=== PATIENT | female | born 1940 | race Caucasian/White ===

== ENCOUNTER 2016-11-28 11:10 | Emergency (ER) | payer MEDICARE ==
--- NOTE | 2016-11-28 12:03 | RAD ---
RIGHT HAND: Three views obtained. HISTORY: Laceration to hand 1 week ago. Cellulitis. Swelling and redness. FINDINGS: There are degenerative changes seen at the first carpometacarpal joint. There are cystic changes se en in the carpals which appear chronic. Prominent degenerative changes are seen in the PIP and DIP joints of the second and third digits. C ystic changes are noted at the distal aspects of the middle phalanx of the third finger which appear benign. There is swelling of the PIP joints of the second and third digits which is probably chron ic. There is an extraarticular calcification near the PIP joints of the third finger which could represe nt old avulsion fracture. This does not appear acute. There is mild subluxation of this PIP joint. No destructive process or other evidence of osteomyelitis identified. IMPRESSION: There are degenerative changes seen involving the right hand as described above. No evidence of ost eomyelitis identified. POS: [facility]
[2016-11-28] MEDS ORDERED: Doxycycline 100 MG CAP ONE (12:09)
--- NOTE | 2016-11-28 12:20 | ERRECORD ---
[facility] EMERGENCY RECORD HPI CELLULITIS (11:41 JLOY) CHIEF COMPLAINT: Patient presents for evaluation of erythema, Patient presents for evaluation of swelling, Patient presents for evaluation of Pt hit right hand on a door 1 week ago with laceration. Was healing well but then became red and swollen. Started on clindamycin 2 days ago for cellulitis and the urgent care doc naya a line around the erythema. The erythema has progressed slightly past the line and the sweling has increased slightly but some of the erythema has lightened in color. No fever, chills, N/V. Minimal pain, mostly itches. HISTORIAN: History provided by patient. MECHANISM: Possible mechanism laceration. LOCATION: Symptoms are localized, most severe in the hand. TIME COURSE: Gradual onset of symptoms, Symptoms are worsening, are constant. ASSOCIATED WITH: No associated drainage, No associated fever, No associated nausea, No associated proximal streaking. COMPLICATING FACTORS: No complicating factors. EXACERBATED BY: Patient's condition exacerbated by nothing. RELIEVED BY: Patient's condition relieved by nothing. ROS (11:44 JLOY) CONSTITUTIONAL: Historian denies chills, denies fever. GI: Historian denies nausea, denies vomiting. SKIN: Historian reports cellulitis, reports pruritis. NEUROLOGIC: Historian denies paralysis, denies paresthesias, denies sensory changes. PAST MEDICAL HISTORY MEDICAL HISTORY: Flu vaccine up to date, Tetanus immunization up to date, Pneumococcal vaccine up to date, Past medical history includes cardiac history, myocardial infarction, STATES HAD "NO DAMAGE" AND NO BLOCKAGE BUT HAD A CLOT THAT CAUSED [place] IN 2009, Notes: CATARACT, Past medical history includes gastrointestinal disease, irritable bowel syndrome, Past medical history, Past medical history includes cardiac history, myocardial infarction, history of diabetes, Type II, history of hypertension. (11:30 MCBE) FEMALE SURGICAL HISTORY: CARDIAC CATH IN 2010, Surgical history of appendectomy, Surgical history of hysterectomy. (11:30 MCBE) SOCIAL HISTORY: Patient denies alcohol use, Patient denies drug use, Patient has no smoking history. (11:30 MCBE) NOTES: Nursing records reviewed, Agree with nursing records. (11:46 JLOY) KNOWN ALLERGIES penicillin G sodium CURRENT MEDICATIONS (11:26 MCBE) &a-1R&a+25V*p+0X*[id number]*c202B*c15G*c2P*p-0X&a-25V&a+1R Name: Machelle Payton : 1940 F76 MedRec: [id number] AcctNum: [id number] Prepared: Anthony Nov 28, 2016 12:23 by Interface Page 1 of 3 pMD [facility] EMERGENCY RECORD diltiazem HCl: CAPSULE, EXT RELEASE 24 HR : Strength - 120 mg : ORAL Patient Dose: 1 tab(s) Oral once a day (in the morning). lisinopril: TABLET : Strength - 5 mg : ORAL Patient Dose: 1/2 tab(s) Oral once a day (in the morning). metFORMIN: TABLET, EXTENDED RELEASE 24 HR : Strength - 500 mg : ORAL Patient Dose: tab(s) Oral 2 times a day.1 EACH AM ---1/2 TAB EACH PM. estradiol: TABLET : Strength - 2 mg : ORAL Patient Dose: 1/2 tab(s) Oral once a day (in the morning). pravastatin: TABLET : Strength - 40 mg : ORAL Patient Dose: 1 tab(s) Oral once a day (in the evening). Flonase: SPRAY, SUSPENSION : Strength - 50 mcg : NASAL Patient Dose: spray(s) Nares Both every other day. nitroglycerin: TABLET, SUBLINGUAL : Strength - 0.4 mg : SUBLINGUAL Patient Dose: 1 tab(s) Sublingual As Needed. aspirin: TABLET : Strength - 81 mg : ORAL Patient Dose: 1 tab(s) Oral every other day. Xalatan: DROPS : Strength - 0.005 % : OPHTHALMIC Patient Dose: 1 gtt Eyes Both once a day (at bedtime). Combigan: DROPS : Strength - 0.2 %-0.5 % : OPHTHALMIC Patient Dose: 2 times a day. methocarbamol: TABLET : Strength - 500 mg : ORAL Patient Dose: 2 tab(s) once a day (at bedtime). nitroglycerin: TABLET, SUBLINGUAL : Strength - 0.3 mg : SUBLINGUAL Patient Dose: 1 tab(s) SUBLINGUAL See Notes.1 TAB EVERY 5 MINUTES FOR TOTAL OF 3 IF HAVE PAIN. NO MORE THAN 3 TABLETS DAILY. VITAL SIGNS (11:24 MCBE) VITAL SIGNS: BP: 142/70, Pulse: 89, Resp: 18, Temp: 98.6 (Oral), Pain: 0, O2 sat: 96 on Room Air, Time: 11/28/2016 11:24. PHYSICAL EXAM (11:45 [facility]) CONSTITUTIONAL: Vital signs reviewed, Patient appears non toxic, Patient alert and oriented to person, place and time. EYES: Eye exam included findings of eyelids normal to inspection, Pupils equally round and reactive to light, Conjunctiva normal. RESPIRATORY CHEST: Respiratory exam included findings of no respiratory distress, Chest exam included findings of chest movement &a-1R&a+25V*p+0X*l4672L*c202B*c15G*c2P*p-0X&a-25V&a+1R Name: Machelle Payton : 1940 F76 MedRec: [id number] AcctNum: [id number] Prepared: Sat Nov 28, 2016 12:23 by Interface Page 2 of 3 pMD [facility] EMERGENCY RECORD symmetrical. UPPER EXTREMITY: Upper extremity exam included findings of inspection abnormal, generalized erythema and edema of the dorsum of the hand. Extending to the base of the fingers and the distal wrist. Slight extension past the marker line. Non tender. Mild edema. Laceration healing well. No exudate. NEURO: [place] coma scale 15, Neuro exam findings include patient oriented to person, place and time, Speech normal. SKIN: Skin exam included findings of skin warm, dry, and normal in color, see hand above. PSYCHIATRIC: Normal affect. MEDICATION ADMINISTRATION SUMMARY Drug Name: doxycycline hyclate oral, Dose Ordered: 100 mg, Route: Oral, Status: Given, Time: 12:10 11/28/2016, Detailed record available in Medication Service section. PROBLEM LIST No recorded problems DIAGNOSIS (12:08 [facility]) FINAL: PRIMARY: CELLULITIS UNSPECIFIED. PRESCRIPTION (12:07 [facility]) doxycycline hyclate oral: CAPSULE : 100 mg : ORAL : Quantity: 100 Unit: mg Route: ORAL Schedule: 2 times a day Dispense: 7 days May substitute. Refills: No Refills . NOTES: No Refills. DISPOSITION PATIENT: Disposition Type: Discharge, Disposition: *Discharge Home. (12:08 [facility]) Patient left the department. (12:17 TRENT) Rosales: VERÓNICA=MD Lj, Jared NEWMAN=ROB Ayala, Adal MCBE=Kaylynn Batista &a-1R&a+25V*p+0X*[id number]*c202B*c15G*c2P*p-0X&a-25V&a+1R Name: Machelle Payton : 1940 F76 MedRec: [id number] AcctNum: [id number] Prepared: Anthony Nov 28, 2016 12:23 by Interface Page 3 of 3 pMD MTDD
--- NOTE | 2016-11-28 12:31 | PICIS ---
[facility] EMERGENCY RECORD TRIAGE ([facility] Nov 28, 2016 11:26 MCBE) TRIAGE NOTES: cut hand on door about a week ago. went to urgent care center . was prescribed clindamycin for cellulitis. patient states swelling and redness has increased. ([facility] Nov 28, 2016 11:26 MCBE) PATIENT: NAME: Machelle Payton, AGE: 76, GENDER: female, : Wed1940, TIME OF GREET: Sat Nov 28, 2016 11:10, PREFERRED LANGUAGE: Vietnamese, ETHNICITY: Not or , ECODE BILLING MAP: [facility] ER, SSN: [id number], Zip Code: [address], KG WEIGHT: 82.55, PHONE: , , , PERSON ID: [id number]. ([facility] Nov 28, 2016 11:26 MCBE) COMPLAINT: RIGHT HAND SWELLING. ([facility] Nov 28, 2016 11:26 MCBE) ADMISSION: URGENCY: 3 Urgent, ADMISSION SOURCE: Home, TRANSPORT: CAR, BED: ER -04. ([facility] Nov 28, 2016 11:26 MCBE) ASSESSMENT: Assessment: patient is observed picking up purse with right hand. no loss of rom. patient reports hand doesn't hurt. it itches. (11:30 MCBE) SIRS SCORING: Heart Rate 55-109 (0), Temp range 96.8-101.1 (0), respiratory rate 12-24 (0), Mental Status altered: no (0), Infection or Suspected Infection: No. (11:30 MCBE) TRIAGE SCREENING: Patient denies suicidal ideation, Patient denies presence of domestic violence. (11:30 MCBE) PROVIDERS: TRIAGE NURSE: Kaylynn Batista. ([facility] Nov 28, 2016 11:26 MCBE) VITAL SIGNS: BP 142/70, Pulse 89, Resp 18, Temp 98.6, (Oral), Pain 0, O2 Sat 96, on Room Air, Time 11/28/2016 11:24. (11:24 MCBE) KNOWN ALLERGIES penicillin G sodium CURRENT MEDICATIONS (11:26 MCBE) diltiazem HCl: CAPSULE, EXT RELEASE 24 HR : Strength - 120 mg : ORAL Patient Dose: 1 tab(s) Oral once a day (in the morning). lisinopril: TABLET : Strength - 5 mg : ORAL Patient Dose: 1/2 tab(s) Oral once a day (in the morning). metFORMIN: TABLET, EXTENDED RELEASE 24 HR : Strength - 500 mg : ORAL Patient Dose: tab(s) Oral 2 times a day.1 EACH AM ---1/2 TAB EACH PM. estradiol: TABLET : Strength - 2 mg : ORAL Patient Dose: 1/2 tab(s) Oral once a day (in the morning). pravastatin: TABLET : Strength - 40 mg : ORAL Patient Dose: 1 tab(s) Oral once a day (in the evening). Flonase: SPRAY, SUSPENSION : Strength - 50 mcg : NASAL &a-1R&a+25V*p+0X*d8640N*c202B*c15G*c2P*p-0X&a-25V&a+1R Name: Machelle Payton : 1940 F76 MedRec: [id number] AcctNum: [id number] Prepared: Anthony Nov 28, 2016 12:29 by Interface Page 1 of 6 pMD [facility] EMERGENCY RECORD Patient Dose: spray(s) Nares Both every other day. nitroglycerin: TABLET, SUBLINGUAL : Strength - 0.4 mg : SUBLINGUAL Patient Dose: 1 tab(s) Sublingual As Needed. aspirin: TABLET : Strength - 81 mg : ORAL Patient Dose: 1 tab(s) Oral every other day. Xalatan: DROPS : Strength - 0.005 % : OPHTHALMIC Patient Dose: 1 gtt Eyes Both once a day (at bedtime). Combigan: DROPS : Strength - 0.2 %-0.5 % : OPHTHALMIC Patient Dose: 2 times a day. methocarbamol: TABLET : Strength - 500 mg : ORAL Patient Dose: 2 tab(s) once a day (at bedtime). nitroglycerin: TABLET, SUBLINGUAL : Strength - 0.3 mg : SUBLINGUAL Patient Dose: 1 tab(s) SUBLINGUAL See Notes.1 TAB EVERY 5 MINUTES FOR TOTAL OF 3 IF HAVE PAIN. NO MORE THAN 3 TABLETS DAILY. VITAL SIGNS (11:24 MCBE) VITAL SIGNS: BP: 142/70, Pulse: 89, Resp: 18, Temp: 98.6 (Oral), Pain: 0, O2 sat: 96 on Room Air, Time: 11/28/2016 11:24. NURSING ASSESSMENT: SKIN (11:30 MCBE) CONSTITUTIONAL: Complex assessment performed, Patient arrives ambulatory, Gait steady, History obtained from patient, Patient appears comfortable, Patient cooperative, Patient alert, Oriented to person, place and time, Skin warm, Skin dry, Skin normal in color, Mucous membranes pink, Mucous membranes moist, Patient is well-groomed, Patient complains of cellutlitis right hand, patient reports that the doctor at the urgent care clinic told her that she needs to return to the ER if the redness and swelling went past line that was drawn on skin. redness and swelling is noted past the line. patient states that the redness with in the [place] has been improved. PAIN: Patient rates pain as 0 out of 10, patient reports it itches. SKIN: Skin assessment findings include skin warm, Skin dry, Skin normal in color, Inspection findings include: No pressure ulcer to the shoulder, Inspection findings include no pressure ulcer to the elbow, Inspection findings include no pressure ulcers to the hip, Inspection findings include no pressure ulcer to the sacrum, Inspection findings include no pressure ulcer to the heel, Inspection findings include no pressure ulcer, Inspection findings include no pressure ulcer, Inspection findings include redness, to top of right hand, Inspection findings include signs of infection, to top of right hand, Inspection findings include swelling, to top of right hand. &a-1R&a+25V*p+0X*[id number]*c202B*c15G*c2P*p-0X&a-25V&a+1R Name: Machelle Payton : 1940 F76 MedRec: [id number] AcctNum: [id number] Prepared: Sat Nov 28, 2016 12:29 by Interface Page 2 of 6 pMD [facility] EMERGENCY RECORD NURSING PROCEDURE: DISCHARGE NOTE (12:12 JPAR) DISCHARGE: Patient discharged to home, ambulating without assistance, family driving, accompanied by other family member, Summary of Care printed/ provided, Patient requested and was provided an electronic copy of Discharge Instructions, Transition record given to patient, Discharge instructions given to patient, Simple or moderate discharge teaching performed, Increase fluids while taking antibiotics, Prescriptions given and instructions on side effects given, Name of prescription(s) given: Doxycycline, Medication reconciliation form given, Above person(s) verbalized understanding of discharge instructions and follow-up care, Patient treated and evaluated by physician. BELONGINGS: Belongings and valuables with patient at time of discharge include:, Belongings remain with patient, Valuables remain with patient. SAFETY: Side rails up, Cart/Stretcher in lowest position, Family at bedside, Call light within reach, Hospital ID band on. NURSING PROCEDURE: TRANSPORT TO TESTS (11:45 [facility]I) TRANSPORT TO TESTS: Patient transported to x-ray, ambulatory, Accompanied by x-ray photo lab technician, Patient arrived in location at 11:42A, Patient departed location at 11:50A. ORDER DETAILS Order Name: XR Hand Rt 3 View STANDARD, Status: Active, Time: 11:41 11/28/2016, User: VERÓNICA, - Ordered for: MD Calhoun Joshua, - Entered by: MD Calhoun Joshua - Sat Nov 28, 2016 11:41, - Quantity: 1. MEDICATION ADMINISTRATION SUMMARY Drug Name: doxycycline hyclate oral, Dose Ordered: 100 mg, Route: Oral, Status: Given, Time: 12:10 11/28/2016, Detailed record available in Medication Service section. MEDICATION SERVICE (12:10 [facility]) doxycycline hyclate oral: Order: doxycycline hyclate oral (doxycycline hyclate) - Dose: 100 mg : Oral Ordered by: Jared Calhoun MD Entered by: Jared Calhoun MD Sat Nov 28, 2016 12:07 , Acknowledged by: Adal Ayala RN Sat Nov 28, 2016 12:08 Documented as given by: Adal Ayala RN Sat Nov 28, 2016 12:10 Patient, Medication, Dose, Route and Time verified prior to administration. Patient appears Awake and alert- acceptable, Correct patient, time, route, dose and medication confirmed prior to administration, Patient advised of actions and side-effects prior to administration, &a-1R&a+25V*p+0X*f6449S*c202B*c15G*c2P*p-0X&a-25V&a+1R Name: Machelle Payton : 1940 F76 MedRec: [id number] AcctNum: [id number] Prepared: Anthony Nov 28, 2016 12:29 by Interface Page 3 of 6 pMD [facility] EMERGENCY RECORD Allergies confirmed and medications reviewed prior to administration, Patient in position of comfort, Side rails up, Cart in lowest position, Family at bedside, Call light in reach. HPI CELLULITIS (11:41 JL) CHIEF COMPLAINT: Patient presents for evaluation of erythema, Patient presents for evaluation of swelling, Patient presents for evaluation of Pt hit right hand on a door 1 week ago with laceration. Was healing well but then became red and swollen. Started on clindamycin 2 days ago for cellulitis and the urgent care doc naya a line around the erythema. The erythema has progressed slightly past the line and the sweling has increased slightly but some of the erythema has lightened in color. No fever, chills, N/V. Minimal pain, mostly itches. HISTORIAN: History provided by patient. MECHANISM: Possible mechanism laceration. LOCATION: Symptoms are localized, most severe in the hand. TIME COURSE: Gradual onset of symptoms, Symptoms are worsening, are constant. ASSOCIATED WITH: No associated drainage, No associated fever, No associated nausea, No associated proximal streaking. COMPLICATING FACTORS: No complicating factors. EXACERBATED BY: Patient's condition exacerbated by nothing. RELIEVED BY: Patient's condition relieved by nothing. ROS (11:44 JL) CONSTITUTIONAL: Historian denies chills, denies fever. GI: Historian denies nausea, denies vomiting. SKIN: Historian reports cellulitis, reports pruritis. NEUROLOGIC: Historian denies paralysis, denies paresthesias, denies sensory changes. PAST MEDICAL HISTORY MEDICAL HISTORY: Flu vaccine up to date, Tetanus immunization up to date, Pneumococcal vaccine up to date, Past medical history includes cardiac history, myocardial infarction, STATES HAD "NO DAMAGE" AND NO BLOCKAGE BUT HAD A CLOT THAT CAUSED [place] IN 2009, Notes: CATARACT, Past medical history includes gastrointestinal disease, irritable bowel syndrome, Past medical history, Past medical history includes cardiac history, myocardial infarction, history of diabetes, Type II, history of hypertension. (11:30 MCBE) FEMALE SURGICAL HISTORY: CARDIAC CATH IN 2009, Surgical history of appendectomy, Surgical history of hysterectomy. (11:30 MCBE) SOCIAL HISTORY: Patient denies alcohol use, Patient denies drug use, Patient has no smoking history. (11:30 MCBE) NOTES: Nursing records reviewed, Agree with nursing records. (11:46 JLOY) &a-1R&a+25V*p+0X*c3787C*c202B*c15G*c2P*p-0X&a-25V&a+1R Name: Machelle Payton : 1940 F76 MedRec: [id number] AcctNum: [id number] Prepared: Sat Nov 28, 2016 12:29 by Interface Page 4 of 6 pMD [facility] EMERGENCY RECORD PHYSICAL EXAM (11:45 JLOY) CONSTITUTIONAL: Vital signs reviewed, Patient appears non toxic, Patient alert and oriented to person, place and time. EYES: Eye exam included findings of eyelids normal to inspection, Pupils equally round and reactive to light, Conjunctiva normal. RESPIRATORY CHEST: Respiratory exam included findings of no respiratory distress, Chest exam included findings of chest movement symmetrical. UPPER EXTREMITY: Upper extremity exam included findings of inspection abnormal, generalized erythema and edema of the dorsum of the hand. Extending to the base of the fingers and the distal wrist. Slight extension past the marker line. Non tender. Mild edema. Laceration healing well. No exudate. NEURO: [place] coma scale 15, Neuro exam findings include patient oriented to person, place and time, Speech normal. SKIN: Skin exam included findings of skin warm, dry, and normal in color, see hand above. PSYCHIATRIC: Normal affect. EVENTS TRANSFER: Triage to Emergency Emergency Room -04. (Sat Nov 28, 2016 11:26 MCBE) Removed from Emergency Emergency Room -04. (12:17 JPAR) PROBLEM LIST No recorded problems DIAGNOSIS (12:08 JLOY) FINAL: PRIMARY: CELLULITIS UNSPECIFIED. DISPOSITION PATIENT: Disposition Type: Discharge, Disposition: *Discharge Home. (12:08 JLOY) Patient left the department. (12:17 JPAR) INSTRUCTION (12:08 JLOY) DISCHARGE: CELLULITIS. [facility] [address] [address], [phone], Follow up with Primary Care Physician in 3-4 days. PRESCRIPTION (12:07 JLOY) doxycycline hyclate oral: CAPSULE : 100 mg : ORAL : Quantity: 100 Unit: mg Route: ORAL Schedule: 2 times a day Dispense: 7 days May substitute. Refills: No Refills . NOTES: No Refills. IMAGING (12:15 JPAR) *SUPPLY CHARGE SHEET: Image captured from scanner. &a-1R&a+25V*p+0X*w8506P*c202B*c15G*c2P*p-0X&a-25V&a+1R Name: Machelle Payton : 1940 F76 MedRec: [id number] AcctNum: [id number] Prepared: [facility] Nov 28, 2016 12:29 by Interface Page 5 of 6 D [facility] EMERGENCY RECORD *DISCHARGE INSTRUCTIONS RECEIPT: Image captured from scanner. ADMIN DIGITAL SIGNATURE: MD Calhoun Joshua. (12:08 VERÓNICA) ROB Ayala Jason. (12:17 JPAR) Rosales: CCRI=GEOVANI [place] JLOY=MD Calhoun Joshua JPAR=ROB Ayala Jason MCBE=Kaylynn Batista &a-1R&a+25V*p+0X*d2537O*c202B*c15G*c2P*p-0X&a-25V&a+1R Name: Machelle Payton : 1940 F76 MedRec: [id number] AcctNum: [id number] Prepared: [facility] Nov 28, 2016 12:29 by Interface Page 6 of 6 D [facility] MEDICATION RECONCILIATION You were seen in the Emergency Department on: Sat Nov 28, 2016 KNOWN ALLERGIES penicillin G sodium MEDICATIONS GIVEN WHILE IN THE EMERGENCY DEPARTMENT doxycycline hyclate oral (doxycycline hyclate) - Dose: 100 milligram(s) : Oral HOME MEDICATIONS CONTINUE PRESCRIBED aspirin : TABLET : Strength - 81 mg : ORAL Continue as prescribed Patient had been takin tab(s) Oral every other day. Combigan : DROPS : Strength - 0.2 %-0.5 % : OPHTHALMIC Continue as prescribed Patient had been takin times a day. diltiazem HCl : CAPSULE, EXT RELEASE 24 HR : Strength - 120 mg : ORAL Continue as prescribed Patient had been takin tab(s) Oral once a day (in the morning). estradiol : TABLET : Strength - 2 mg : ORAL Continue as prescribed Patient had been takin/2 tab(s) Oral once a day (in the morning). Flonase : SPRAY, SUSPENSION : Strength - 50 mcg : NASAL Continue as prescribed Patient had been taking: spray(s) Nares Both every other day. lisinopril : TABLET : Strength - 5 mg : ORAL Continue as prescribed Patient had been takin/2 tab(s) Oral once a day (in the morning). &a-1R&a+25V*p+0X*t4219I*c202B*c15G*c2P*p-0X&a-25V&a+1R Name: Machelle Payton : 1940 F76 MedRec: [id number] AcctNum: [id number] Prepared: Sat Nov 28, 2016 12:29 by Interface pMD [facility] MEDICATION RECONCILIATION metFORMIN : TABLET, EXTENDED RELEASE 24 HR : Strength - 500 mg : ORAL Continue as prescribed Patient had been taking: tab(s) Oral 2 times a day. Comment: 1 EACH AM ---1/2 TAB EACH PM. methocarbamol : TABLET : Strength - 500 mg : ORAL Continue as prescribed Patient had been takin tab(s) once a day (at bedtime). nitroglycerin : TABLET, SUBLINGUAL : Strength - 0.4 mg : SUBLINGUAL Continue as prescribed Patient had been takin tab(s) Sublingual As Needed. nitroglycerin : TABLET, SUBLINGUAL : Strength - 0.3 mg : SUBLINGUAL Continue as prescribed Patient had been takin tab(s) SUBLINGUAL See Notes. Comment: 1 TAB EVERY 5 MINUTES FOR TOTAL OF 3 IF HAVE PAIN. NO MORE THAN 3 TABLETS DAILY. pravastatin : TABLET : Strength - 40 mg : ORAL Continue as prescribed Patient had been takin tab(s) Oral once a day (in the evening). Xalatan : DROPS : Strength - 0.005 % : OPHTHALMIC Continue as prescribed Patient had been takin gtt Eyes Both once a day (at bedtime). PRESCRIPTIONS (1) &a-1R&a+25V*p+0X*y6386M*c202B*c15G*c2P*p-0X&a-25V&a+1R Name: Machelle Payton : 1940 F76 MedRec: [id number] AcctNum: [id number] Prepared: Anthony Nov 28, 2016 12:29 by Interface pMD [facility]
== END 2016-11-28 12:12 | disposition home or self-care (01) ==
LOC: NAV ERS 11:10
DX: L03.113 Cellulitis of right upper limb (principal); I25.2 Old myocardial infarction; E11.9 Type 2 diabetes mellitus without complications; I10 Essential (primary) hypertension
CPT/HCPCS: 99283

== ENCOUNTER 2016-12-25 08:45 | Outpatient (CLI) | payer MEDICARE | END 2016-12-25 08:46 | disposition home or self-care (01) | LOC: NAV LAB 08:45 | PROVIDERS: ATTEND Family Medicine | DX: E78.2 Mixed hyperlipidemia (principal); E11.9 Type 2 diabetes mellitus without complications; I11.0 Hypertensive heart disease with heart failure | CPT/HCPCS: 36415; 83036 ==

== ENCOUNTER 2017-01-05 18:33 | Emergency (ER) | payer MEDICARE ==
--- NOTE | 2017-01-05 19:41 | RAD ---
CHEST PA AND LATERAL: 01/05/17 HISTORY: 76-year-old female with chills, bodyaches, and fever. COMPARISON: 02/24/16 FINDINGS: Bilateral interstitial changes are noted particularly in the lower lung zones, stable. Heart size is within normal limits. The lungs are clear. IMPRESSION: Stable bilateral interstitial changes evident for nonspecific chronic interstitial lung disease. No confluent pneumonia or other acute process. POS: [facility]
[2017-01-05 19:52] LABS: Bilirubin Negative (Negative); Blood, Urine Negative (Negative); Glucose, Urine (Dipstick) Negative (Negative); Ketone, Urine Negative (Negative); Nitrite Negative (Negative); Protein, Urine (Dipstick) Trace mg/dL (Neg-Trace); Urobilinogen 0.2 mg/dL (0.2-1.0)
[2017-01-05 20:03] LABS: ALT (SGPT) 14 U/L (0-55); AST (SGOT) 18 U/L (5-34); Alkaline Phosphatase 95 U/L (40-150); Anion Gap 13 mmol/L (10-20); BUN (Urea Nitrogen) 17 mg/dL (9.8-20.1); Bilirubin, Total 0.3 mg/dL (0.2-1.2); Calc. Creatinine Clearance 0 mL/min (70-130); Calcium 9.1 mg/dL (7.8-10.44); Carbon Dioxide 22 mmol/L (23-31); Chloride 101 mmol/L (98-107); Estimated GFR-MDRD 53; Globulin 3.4 g/dL (2.4-3.5)
[2017-01-05 20:14] LABS: Lactic Acid - Sepsis 0.8 mmol/L (0.5-2.2)
[2017-01-05 20:20] LABS: Band 2 % (5-11); Hematocrit 35.9 % (36.0-47.0); Mean Platelet Volume 5.9 fL (7.4-10.4); Neutrophil 85 % (42-75); Red Blood Cell (RBC) Count 3.82 mill/uL (4.20-5.40); White Blood Cell (WBC) Count 12.4 thou/uL (4.8-10.8)
[2017-01-05] MEDS ORDERED: Doxycycline 100 MG CAP ONE (21:06)
[2017-01-06] MEDS ORDERED: Sodium Chloride 0.9% 1,000 ML ONE (02:04)
== END 2017-01-05 22:02 | disposition home or self-care (01) ==
LOC: NAV ERS 18:33
DX: J01.90 Acute sinusitis, unspecified (principal); I25.2 Old myocardial infarction; E11.9 Type 2 diabetes mellitus without complications; Z79.84 Long term (current) use of oral hypoglycemic drugs; Z79.82 Long term (current) use of aspirin; Z79.899 Other long term (current) drug therapy
CPT/HCPCS: 71020; 80053; 81003; 83605; 85025; 96360; 96361; J7050

== ENCOUNTER 2017-01-19 15:49 | Outpatient (CLI) | payer MEDICARE ==
[2017-01-19 16:29] LABS: Anion Gap 15 mmol/L (10-20); BUN (Urea Nitrogen) 18 mg/dL (9.8-20.1); Calc. Creatinine Clearance 0 mL/min (70-130); Calcium 9.2 mg/dL (7.8-10.44); Carbon Dioxide 27 mmol/L (23-31); Chloride 104 mmol/L (98-107); Estimated GFR-MDRD 52
== END 2017-01-19 15:50 | disposition home or self-care (01) ==
LOC: NAV LAB 15:49
PROVIDERS: ATTEND Family Medicine
DX: E87.1 Hypo-osmolality and hyponatremia (principal)
CPT/HCPCS: 36415; 80048

== ENCOUNTER 2017-07-13 18:47 | Outpatient (CLI) | payer MEDICARE ==
[2017-07-13 19:41] LABS: Hemoglobin A1c 5.9 % (4.0-6.0)
== END 2017-07-13 18:48 | disposition home or self-care (01) ==
LOC: NAV LAB 18:47
PROVIDERS: ATTEND Family Medicine
DX: E11.9 Type 2 diabetes mellitus without complications (principal)
CPT/HCPCS: 83036

== ENCOUNTER 2017-08-31 09:13 | Emergency (ER) | payer MEDICARE ==
[2017-08-31] MEDS ORDERED: Acetaminophen 500 MG TAB ONE (09:35)
--- NOTE | 2017-08-31 09:47 | RAD ---
PA AND LATERAL CHEST: Indication: Cough. Comparison: 01-05-17 FINDINGS: Chronic lung changes are similar. Cardiomegaly persists. No acute airspace opacity of pleural effusi on is evident. Thoracolumbar scoliosis is similar. IMPRESSION: Stable chronic lung changes. POS: [facility]
== END 2017-08-31 10:41 | disposition home or self-care (01) ==
LOC: NAV ERS 09:13
DX: J20.9 Acute bronchitis, unspecified (principal); Z79.82 Long term (current) use of aspirin; Z79.84 Long term (current) use of oral hypoglycemic drugs; Z79.899 Other long term (current) drug therapy; E11.9 Type 2 diabetes mellitus without complications; I10 Essential (primary) hypertension
CPT/HCPCS: 71020

== ENCOUNTER 2018-02-18 23:02 | Emergency (ER) | payer MEDICARE ==
[2018-02-18 23:26] LABS: #Basophils 0.1 thou/uL (0.0-0.2); #Eosinphils 0.2 thou/uL (0.0-0.7); #Lymphocytes 2.7 thou/uL (1.20-3.40); #Neutrophils 6.5 thou/uL (1.40-6.50); %Basophils 0.7 % (0.0-1.0); %Eosinophils 1.9 % (0.0-10.0); %Monocytes 9.2 % (0.0-10.0); %Neutrophils 62.3 % (42.0-75.0); Hemoglobin 11.9 g/dL (12.0-16.0); Mean Corpuscular HGB CONC 33.2 g/dL (32.0-36.0); Mean Corpuscular Hemoglobin 30.6 pg (27.0-31.0); Mean Platelet Volume 6.3 fL (7.4-10.4); Platelet Count 369 thou/uL (130-400); RBC Distribution Width 11.5 % (11.5-14.5); White Blood Cell (WBC) Count 10.4 thou/uL (4.8-10.8)
[2018-02-18 23:46] LABS: ALT (SGPT) 13 U/L (8-55); AST (SGOT) 17 U/L (5-34); Albumin 3.8 g/dL (3.4-4.8); Alkaline Phosphatase 93 U/L (40-150); Anion Gap 14 mmol/L (10-20); BUN (Urea Nitrogen) 15 mg/dL (9.8-20.1); Bilirubin, Total 0.3 mg/dL (0.2-1.2); Calc. Creatinine Clearance 0 mL/min (70-130); Calcium 9.3 mg/dL (7.8-10.44); Carbon Dioxide 25 mmol/L (23-31); Chloride 100 mmol/L (98-107); Estimated GFR-MDRD 60; Globulin 3.4 g/dL (2.4-3.5); Glucose 104 mg/dL (83-110); Potassium 4.1 mmol/L (3.5-5.1); Protein, Total 7.2 g/dL (6.0-8.3); Sodium 135 mmol/L (136-145)
--- NOTE | 2018-02-18 23:46 | RAD ---
SINGLE VIEW OF THE CHEST: 02/18/18 COMPARISON: 08/31/17 HISTORY: Dizzy spell earlier today. FINDINGS: Single view of the chest shows a normal sized cardiomediastinal silhouette. There is no evidence of c onsolidation, mass, or pleural effusion. The bones are unremarkable. IMPRESSION: No evidence of acute cardiopulmonary disease. POS: [facility]
[2018-02-18 23:48] LABS: CKMB 1.7 ng/mL (0-6.6); Troponin I Less than 0.010 ng/mL (< 0.028)
[2018-02-19 00:30] LABS: Bilirubin Negative (Negative); Blood, Urine Negative (Negative); Clarity Clear (Clear); Glucose, Urine (Dipstick) Negative (Negative); Leukocyte Negative (Negative); Nitrite Negative (Negative); Protein, Urine (Dipstick) Negative (Neg-Trace); pH, Urine 7.5 (5.0-9.0)
== END 2018-02-19 00:48 | disposition home or self-care (01) ==
LOC: NAV ERS 23:02
DX: R53.1 Weakness (principal); I25.2 Old myocardial infarction; E11.9 Type 2 diabetes mellitus without complications; I10 Essential (primary) hypertension; Z79.899 Other long term (current) drug therapy; Z79.84 Long term (current) use of oral hypoglycemic drugs
CPT/HCPCS: 36415; 71045; 80053; 81003; 82553; 84484; 85025; 93005

== ENCOUNTER 2020-01-23 08:24 | Emergency (ER) | payer MEDICARE ==
[2020-01-23] MEDS ORDERED: Ibuprofen 800 MG TAB ONE (08:50)
--- NOTE | 2020-01-23 09:16 | RAD ---
PA AND LATERAL CHEST: HISTORY: Cough and runny nose. Low-grade fever. COMPARISON: 08/31/2017 study. FINDINGS: Heart size is minimally enlarged. Mediastinal structures appear unremarkable. Chronic lung changes are seen without focal infiltrates. IMPRESSION: Minimal cardiomegaly with chronic-appearing lung change. POS: [facility]
== END 2020-01-23 09:45 | disposition home or self-care (01) ==
LOC: NAV ERS 08:24
DX: J11.1 Influenza due to unidentified influenza virus with other respiratory manifestations (principal); E11.9 Type 2 diabetes mellitus without complications; I10 Essential (primary) hypertension; M19.90 Unspecified osteoarthritis, unspecified site; I25.2 Old myocardial infarction; K58.9 Irritable bowel syndrome, unspecified; Z79.84 Long term (current) use of oral hypoglycemic drugs; Z79.899 Other long term (current) drug therapy
CPT/HCPCS: 71046; 87804

== ENCOUNTER 2020-09-17 07:43 | Emergency (ER) | payer MEDICARE ==
[2020-09-17] MEDS ORDERED: Sodium Chloride 0.9% 1,000 ML ONE (08:32)
[2020-09-17] MEDS ORDERED: Iopamidol 370 76% 100 ML VIAL ONE (09:00)
[2020-09-17 09:06] LABS: Bilirubin Negative (Negative); Blood, Urine Negative (Negative); Clarity Clear (Clear); Glucose, Urine (Dipstick) Negative (Negative); Ketone, Urine Negative (Negative); Leukocyte Negative (Negative); Nitrite Negative (Negative); Protein, Urine (Dipstick) Negative (Neg-Trace); Urobilinogen 0.2 mg/dL (Less than 2)
[2020-09-17 09:20] LABS: #Basophils 0.1 thou/uL (0.0-0.2); #Eosinphils 0.1 thou/uL (0.0-0.7); #Lymphocytes 1.3 thou/uL (1.20-3.40); #Monocytes 0.7 thou/uL (0.11-0.59); #Neutrophils 7.2 thou/uL (1.40-6.50); %Basophils 0.6 % (0.0-1.0); %Eosinophils 1.5 % (0.0-10.0); %Lymphocytes 14.1 % (21.0-51.0); %Monocytes 7.3 % (0.0-10.0); %Neutrophils 76.6 % (42.0-75.0); Hemoglobin 10.7 g/dL (12.0-16.0); Mean Corpuscular HGB CONC 32.3 g/dL (32.0-36.0); Mean Corpuscular Hemoglobin 31.7 pg (27.0-31.0); Mean Platelet Volume 6.1 fL (7.4-10.4); Platelet Count 306 thou/uL (130-400); RBC Distribution Width 12.1 % (11.5-14.5); Red Blood Cell (RBC) Count 3.37 mill/uL (4.20-5.40); White Blood Cell (WBC) Count 9.5 thou/uL (4.8-10.8)
[2020-09-17 09:32] LABS: ALT (SGPT) 9 U/L (8-55); AST (SGOT) 15 U/L (5-34); Albumin 3.4 g/dL (3.4-4.8); Alkaline Phosphatase 96 U/L (40-110); Anion Gap 13 mmol/L (10-20); BUN (Urea Nitrogen) 11 mg/dL (9.8-20.1); Bilirubin, Total 0.5 mg/dL (0.2-1.2); Calc. Creatinine Clearance 0 mL/min (70-130); Calcium 8.4 mg/dL (7.8-10.44); Carbon Dioxide 22 mmol/L (23-31); Chloride 106 mmol/L (98-107); Estimated GFR-MDRD 53; Globulin 2.8 g/dL (2.4-3.5); Glucose 108 mg/dL (83-110); Potassium 4.3 mmol/L (3.5-5.1); Protein, Total 6.2 g/dL (6.0-8.3); Sodium 137 mmol/L (136-145)
--- NOTE | 2020-09-17 11:41 | CT ---
CT OF THE ABDOMEN AND PELVIS WITH IV CONTRAST: Date: 09/17/2020 INDICATION: Left lower quadrant abdominal pain in an 79-year-old female. COMPARISON: No CT comparisons of the abdomen or pelvis are available. FINDINGS: There is interstitial lung disease involving both lower lobes consistent with intralobular and intral obular septal thickening with peripheral bronchiectasis. There is a small hiatal hernia. No focal hepatic lesion is evident. The gallbladder, pancreas, and adrenal glands are normal appearing. There are multiple diverticula in volving the duodenum without evidence of active duodenal diverticulitis. There is a 5.0 cm mid left renal cyst. There is a 2.0 cm cystic abnormality involving the anterior as pect of the right mid kidney that is difficult to fully characterize on the current exam. There is a small cyst in the superior right renal pole measuring 1.3 cm. No free fluid or enlarged lymph nodes are evident. There are mild vascular calcifications involving the abdominal aorta. There are scattered diverticula involving the colon. There is some mild inflammatory stranding seen i nvolving the left hemiabdomen, adjacent to the descending colon, without evidence of inflammatory alex nge involving the bowel wall. This is suspicious for a focus of epiploic appendagitis and is best see n on image 53 of series 2. The small bowel is of normal caliber. The appendix is not definitely seen. No free fluid is evident. The uterus is surgically absent. The adnexa are not definitely seen and may be surgically absent. Rectum and perirectal soft tissues are unremarkable appearing. Visualized bladder is unremarkable ignacio earing. There is Grade I anterolisthesis at L4 and L5. There is moderate to severe disc degenerative and facet osteoarthritic change. No definite acute osseous abnormality is evident. IMPRESSION: 1. Findings of epiploic appendagitis involving the descending colon. There is colonic diverticulosis without overt wall thickening and inflammatory stranding involving the colon itself. 2. Incompletely characterized hypodensities of the right kidney. There is a 2.0 cm hypodensity that does not have characteristics of simple cyst Hounsfield density. A follow-up renal ultrasound is yamilka mmended. There is a small 1.3 cm cyst involving the superior pole of the right kidney. There is a 5.0 cm cyst involving the mid left kidney. 3. Interstitial lung disease of both lung bases. 4. Small hiatal hernia. 5. Postsurgical change of hysterectomy and bilateral oophorectomy. POS: [facility]
== END 2020-09-17 11:15 | disposition home or self-care (01) ==
LOC: NAV ERS 07:43
DX: K63.89 Other specified diseases of intestine (principal); E11.9 Type 2 diabetes mellitus without complications; I10 Essential (primary) hypertension; G43.909 Migraine, unspecified, not intractable, without status migrainosus
CPT/HCPCS: 36415; 74177; 80053; 81003; 83605; 84484; 85025; 93005; J7050; Q9967

== ENCOUNTER 2021-11-02 12:16 | Emergency (ER) | payer MEDICARE ==
[2021-11-03 17:29] LABS: SARS-CoV-2 PCR by NAA DETECTED (NotDetected)
== END 2021-11-02 13:48 | disposition home or self-care (01) ==
LOC: NAV ERS 12:16
DX: U07.1 COVID-19 (principal); J12.82 Pneumonia due to coronavirus disease 2019; I10 Essential (primary) hypertension; E11.9 Type 2 diabetes mellitus without complications; I25.2 Old myocardial infarction; G43.909 Migraine, unspecified, not intractable, without status migrainosus; M19.90 Unspecified osteoarthritis, unspecified site; Z79.84 Long term (current) use of oral hypoglycemic drugs; Z79.899 Other long term (current) drug therapy
CPT/HCPCS: 71046; 87804; U0003; U0005

== ENCOUNTER 2022-01-27 13:31 | Emergency (ER) | payer MEDICARE ==
[~2022-01-27 13:31] MED LIST: Iopamidol 370 76% 100 ML VIAL ONE
[2022-01-27] MEDS ORDERED: Sodium Chloride 0.9% 1,000 ML ONE (13:48)
[2022-01-27] MEDS ORDERED: Ondansetron PF 4 MG/2 ML Vial ONE ×2 (13:48→19:20)
[2022-01-27 14:05] LABS: #Eosinphils 0.2 thou/uL (0.0-0.7); #Lymphocytes 0.5 thou/uL (1.20-3.40); #Monocytes 0.7 thou/uL (0.11-0.59); #Neutrophils 15.5 thou/uL (1.40-6.50); %Basophils 0.3 % (0.0-1.0); %Lymphocytes 3.1 % (21.0-51.0); %Monocytes 4.2 % (0.0-10.0); %Neutrophils 91.4 % (42.0-75.0); Hemoglobin 12.7 g/dL (12.0-16.0); Mean Corpuscular HGB CONC 31.4 g/dL (32.0-36.0); Mean Corpuscular Hemoglobin 30.4 pg (27.0-31.0); Mean Corpuscular Volume 96.8 fL (78.0-98.0); Mean Platelet Volume 6.5 fL (7.4-10.4); Platelet Count 388 thou/uL (130-400); RBC Distribution Width 12.8 % (11.5-14.5); Red Blood Cell (RBC) Count 4.19 mill/uL (4.20-5.40); White Blood Cell (WBC) Count 16.9 thou/uL (4.8-10.8)
[2022-01-27 14:23] LABS: ALT (SGPT) 9 U/L (8-55); AST (SGOT) 19 U/L (5-34); Albumin 3.8 g/dL (3.4-4.8); Alkaline Phosphatase 109 U/L (40-110); Anion Gap 13 mmol/L (10-20); BUN (Urea Nitrogen) 16 mg/dL (9.8-20.1); Bilirubin, Total 0.4 mg/dL (0.2-1.2); Calc. Creatinine Clearance 0 mL/min (70-130); Calcium 9.1 mg/dL (7.8-10.44); Carbon Dioxide 24 mmol/L (23-31); Chloride 105 mmol/L (98-107); Globulin 3.7 g/dL (2.4-3.5); Glucose 153 mg/dL (83-110); Lipase 26 U/L (8-78); Potassium 4.8 mmol/L (3.5-5.1); Protein, Total 7.5 g/dL (5.8-8.1); Sodium 137 mmol/L (136-145)
[2022-01-27 15:24] LABS: Bilirubin Negative (Negative); Blood, Urine Negative (Negative); Clarity Clear (Clear); Glucose, Urine (Dipstick) Negative (Negative); Ketone, Urine Trace mg/dL (Negative); Leukocyte Negative (Negative); Nitrite Negative (Negative); Protein, Urine (Dipstick) Negative (Neg-Trace); Urobilinogen 0.2 mg/dL (Less than 2); pH, Urine 5.5 (5.0-9.0)
[2022-01-27] MEDS ORDERED: Cipro 250 MG TAB ONE (15:38)
[2022-01-27 18:08] LABS: #Lymphocytes 0.3 thou/uL (1.20-3.40); #Monocytes 0.3 thou/uL (0.11-0.59); #Neutrophils 10.8 thou/uL (1.40-6.50); %Basophils 0.3 % (0.0-1.0); %Eosinophils 0.3 % (0.0-10.0); %Lymphocytes 2.6 % (21.0-51.0); %Monocytes 2.6 % (0.0-10.0); %Neutrophils 94.2 % (42.0-75.0); Hemoglobin 11.8 g/dL (12.0-16.0); Mean Corpuscular HGB CONC 31.8 g/dL (32.0-36.0); Mean Corpuscular Hemoglobin 30.6 pg (27.0-31.0); Mean Corpuscular Volume 96.3 fL (78.0-98.0); Mean Platelet Volume 6.1 fL (7.4-10.4); Platelet Count 358 thou/uL (130-400); RBC Distribution Width 12.9 % (11.5-14.5); Red Blood Cell (RBC) Count 3.86 mill/uL (4.20-5.40); White Blood Cell (WBC) Count 11.5 thou/uL (4.8-10.8)
== END 2022-01-27 19:28 | disposition home or self-care (01) ==
LOC: NAV ERS 13:31
DX: R11.2 Nausea with vomiting, unspecified (principal); R19.7 Diarrhea, unspecified; D72.829 Elevated white blood cell count, unspecified; E11.9 Type 2 diabetes mellitus without complications; I10 Essential (primary) hypertension; I25.2 Old myocardial infarction; M19.90 Unspecified osteoarthritis, unspecified site; Z87.19 Personal history of other diseases of the digestive system; Z79.84 Long term (current) use of oral hypoglycemic drugs; Z79.899 Other long term (current) drug therapy
CPT/HCPCS: 36415; 74177; 80053; 81003; 83605; 83690; 85025; 94760; 96374; 96376; J2405; J7050; Q9967

== ENCOUNTER 2023-07-22 10:12 | Emergency (ER) | payer MEDICARE ==
[2023-07-22 10:47] LABS: #Basophils 0.1 thou/uL (0.0-0.2); #Eosinphils 0.3 thou/uL (0.0-0.7); #Monocytes 0.6 thou/uL (0.11-0.59); #Neutrophils 4.7 thou/uL (1.40-6.50); %Eosinophils 4.1 % (0.0-10.0); %Monocytes 7.7 % (0.0-10.0); %Neutrophils 61.2 % (42.0-75.0); Hematocrit 36.3 % (36.0-47.0); Hemoglobin 11.8 g/dL (12.0-16.0); Mean Corpuscular HGB CONC 32.6 g/dL (32.0-36.0); Mean Corpuscular Hemoglobin 30.5 pg (27.0-31.0); Mean Corpuscular Volume 93.4 fl (78.0-98.0); Mean Platelet Volume 6.4 fL (7.4-10.4); Platelet Count 265 10x3/uL (130-400); RBC Distribution Width 12.6 % (11.5-14.5); Red Blood Cell (RBC) Count 3.88 mill/uL (4.20-5.40); White Blood Cell (WBC) Count 7.7 10x3/uL (4.8-10.8)
[2023-07-22 11:01] LABS: Troponin I Less than 0.010 ng/mL (< 0.028)
[2023-07-22 11:26] LABS: ALT (SGPT) 8 U/L (8-55); AST (SGOT) 15 U/L (5-34); Albumin 3.6 g/dL (3.4-4.8); Alkaline Phosphatase 99 U/L (40-110); Anion Gap 13 mmol/L (10-20); BUN (Urea Nitrogen) 11 mg/dL (9.8-20.1); Bilirubin, Total 0.5 mg/dL (0.2-1.2); Calc. Creatinine Clearance 0 mL/min (70-130); Calcium 9.1 mg/dL (7.8-10.44); Carbon Dioxide 22 mmol/L (23-31); Chloride 110 mmol/L (98-107); Estimated GFR 46; Globulin 3.1 g/dL (2.4-3.5); Glucose 106 mg/dL (83-110); Potassium 4.5 mmol/L (3.5-5.1); Protein, Total 6.7 g/dL (5.8-8.1); Sodium 140 mmol/L (136-145)
[2023-07-22 11:47] LABS: Bilirubin Negative (Negative); Blood, Urine Negative (Negative); Clarity Clear (Clear); Glucose, Urine (Dipstick) Negative (Negative); Ketone, Urine Negative (Negative); Leukocyte Negative (Negative); Nitrite Negative (Negative); Protein, Urine (Dipstick) Negative (Neg-Trace); Specific Gravity, Urine 1.015 (1.005-1.030); Urobilinogen 0.2 mg/dL (Less than 2)
[2023-07-22 11:53] LABS: Bacteria/HPF 1+ HPF (None Seen); CAUTI Indications for Culture Alt mental st,lethar; RBC/HPF None Seen HPF (0-3); Squamous Epithelial None Seen HPF (0-3); Urine Culture Reflex No No; WBC/HPF None Seen HPF (0-3)
== END 2023-07-22 13:52 | disposition home or self-care (01) ==
LOC: NAV ERS 10:12
DX: R07.89 Other chest pain (principal); E11.9 Type 2 diabetes mellitus without complications; I10 Essential (primary) hypertension; Z79.899 Other long term (current) drug therapy; Z79.84 Long term (current) use of oral hypoglycemic drugs
CPT/HCPCS: 36416; 70450; 71045; 80053; 81001; 83690; 84484; 85025; 93005

== ENCOUNTER 2024-06-30 08:38 | Outpatient (CLI) | payer MEDICARE | END 2024-06-30 08:39 | disposition home or self-care (01) | LOC: NAV RAD 08:38 | PROVIDERS: ATTEND Nurse Practitioner Family | DX: M54.2 Cervicalgia (principal); R13.10 Dysphagia, unspecified; M47.812 Spondylosis without myelopathy or radiculopathy, cervical region | CPT/HCPCS: 70360; 72040 ==